=== PATIENT | male | born 1945 | race Caucasian/White ===

== ENCOUNTER 2017-04-04 16:43 | Outpatient (CLI) | payer OTHER ==
--- NOTE | 2017-04-06 08:48 | Ultrasound Report ---
RIGHT LEG ARTERIAL DUPLEX: 04/04/2017 CLINICAL INDICATION: Leg cramps, decreased dorsalis pulse. TECHNIQUE: Real-time sonographic vascular imaging was performed by the credit professional through the lower extremities utilizing both color-flow and Doppler spectral analysis. Multiple membership sales representative static images were saved for review. RIGHT SIDE SITE PSV WAVEFORM STEN ABLE BODIED SEAMAN 89 triphasic PSFA 92 triphasic MSFA 63 triphasic DSFA 115 triphasic PFA 53 triphasic POP 53 triphasic HUNTER 62 triphasic BENEFITS ANALYST 63 triphasic PER 58 triphasic DPA 38 triphasic TECHNIQUE: Real-time scanning was performed. RIGHT LEG: Waveforms are diffusely triphasic. There is no evidence of a focal hemodynamically significant stenosis. IMPRESSION: NO EVIDENCE OF A HEMODYNAMICALLY SIGNIFICANT ARTERIAL STENOSIS IN THE RIGHT LEG. MTDD
== END 2017-04-04 16:44 | disposition home or self-care (01) ==
LOC: DI 16:43
PROVIDERS: ATTEND Family Medicine
DX: R09.89 Other specified symptoms and signs involving the circulatory and respiratory systems (principal); R25.2 Cramp and spasm

== ENCOUNTER 2017-10-10 09:36 | Outpatient (CLI) | payer OTHER | END 2017-10-10 09:37 | disposition home or self-care (01) | LOC: SC 09:36 | PROVIDERS: ATTEND Nurse Practitioner Family | DX: G47.33 Obstructive sleep apnea (adult) (pediatric) (principal) | CPT/HCPCS: 99212; 99214 ==

== ENCOUNTER 2019-06-18 09:32 | Outpatient (CLI) | payer OTHER ==
[2019-06-18 12:04] LABS: BASOPHILS % (AUTO) 0.4 %; EOSINOPHILS # (AUTO) 0.1 10^3/uL (0.0-0.7); EOSINOPHILS % (AUTO) 1.1 %; HGB - HEMOGLOBIN 15.6 g/dL (14.0-18.0); LYMPHOCYTES # (AUTO) 1.5 10^3/uL (1.5-3.5); LYMPHOCYTES % (AUTO) 20.8 %; MEAN CORPUSCULAR HEMOGLOBIN 29.5 pg (27.0-31.0); MEAN CORPUSCULAR HGB CONC 31.7 g/dL (32.0-36.0); MEAN PLATELET VOLUME 10.3 fL (7.4-11.4); MONOCYTES # (AUTO) 0.6 10^3/uL (0.0-1.0); MONOCYTES % (AUTO) 8.9 %; NEUTROPHILS # (AUTO) 4.8 10^3/uL (1.5-6.6); NEUTROPHILS % (AUTO) 68.4 %; PLT - PLATELET COUNT 215 10^3/uL (130-450); RED BLOOD COUNT 5.29 10^6/uL (4.70-6.10); RED CELL DISTRIBUTION WIDTH 14.6 % (12.0-15.0)
[2019-06-18 12:35] LABS: ALBUMIN 3.9 g/dL (3.2-5.5); ALBUMIN/GLOBULIN RATIO 1.2 (1.0-2.2); ALKALINE PHOSPHATASE 86 IU/L (42-121); ALT ALANINE AMINOTRANSFERASE 27 IU/L (10-60); AST ASPARTATE AMINOTRANSFERASE 21 IU/L (10-42); BILIRUBIN,TOTAL 0.8 mg/dL (0.2-1.0); BUN - BLOOD UREA NITROGEN 23 mg/dL (6-20); CALCIUM 8.7 mg/dL (8.5-10.3); CARBON DIOXIDE - CO2 31 mmol/L (21-32); CHLORIDE 107 mmol/L (101-111); CHOL/HDL RATIO 3.9 (<5.0); CHOLESTEROL 145 mg/dL; CREATININE 1.1 mg/dL (0.6-1.2); GFR - MDRD 65 (>89); GLUCOSE 91 mg/dL (70-100); HDL CHOLESTEROL 37 mg/dL; LDL CHOLESTEROL,CALCULATED 69 mg/dL; LDL/HDL RATIO 1.9 (<3.6); SODIUM 143 mmol/L (135-145); TOTAL PROTEIN 7.1 g/dL (6.7-8.2); VLDL CHOLESTEROL 39 mg/dL
== END 2019-06-18 23:59 | disposition home or self-care (01) ==
LOC: LAB.WCP 09:32
PROVIDERS: ATTEND Family Medicine
DX: I48.91 Unspecified atrial fibrillation (principal); I10 Essential (primary) hypertension; E78.5 Hyperlipidemia, unspecified
CPT/HCPCS: 36415; 80053; 80061; 83721; 84443; 85025

== ENCOUNTER 2020-10-02 10:10 | Outpatient (CLI) | payer MEDICARE, OTHER ==
[2020-10-02 12:29] LABS: BASOPHILS % (AUTO) 0.5 %; EOSINOPHILS # (AUTO) 0.1 10^3/uL (0.0-0.7); EOSINOPHILS % (AUTO) 1.6 %; LYMPHOCYTES # (AUTO) 1.2 10^3/uL (1.5-3.5); LYMPHOCYTES % (AUTO) 21.2 %; MEAN CORPUSCULAR HEMOGLOBIN 29.6 pg (27.0-31.0); MEAN CORPUSCULAR HGB CONC 31.9 g/dL (32.0-36.0); MEAN PLATELET VOLUME 10.3 fL (7.4-11.4); MONOCYTES # (AUTO) 0.6 10^3/uL (0.0-1.0); MONOCYTES % (AUTO) 9.8 %; NEUTROPHILS # (AUTO) 3.8 10^3/uL (1.5-6.6); NEUTROPHILS % (AUTO) 66.7 %; PLT - PLATELET COUNT 209 10^3/uL (130-450); RED CELL DISTRIBUTION WIDTH 13.8 % (12.0-15.0); WHITE BLOOD COUNT 5.7 x10^3/uL (4.8-10.8)
[2020-10-02 12:58] LABS: ALBUMIN 3.9 g/dL (3.2-5.5); ALBUMIN/GLOBULIN RATIO 1.3 (1.0-2.2); ALKALINE PHOSPHATASE 92 IU/L (42-121); ALT ALANINE AMINOTRANSFERASE 32 IU/L (10-60); AST ASPARTATE AMINOTRANSFERASE 22 IU/L (10-42); BILIRUBIN,TOTAL 1.1 mg/dL (0.2-1.0); BUN - BLOOD UREA NITROGEN 18 mg/dL (6-20); CALCIUM 9.3 mg/dL (8.5-10.3); CARBON DIOXIDE - CO2 29 mmol/L (21-32); CHLORIDE 102 mmol/L (101-111); CHOL/HDL RATIO 4.2 (<5.0); CHOLESTEROL 139 mg/dL; CREATININE 1.1 mg/dL (0.6-1.2); GLUCOSE 99 mg/dL (70-100); HDL CHOLESTEROL 33 mg/dL; LDL CHOLESTEROL,CALCULATED 63 mg/dL; LDL/HDL RATIO 1.9 (<3.6); SODIUM 141 mmol/L (135-145); VLDL CHOLESTEROL 43 mg/dL
--- OUTSIDE RECORDS SUMMARY | 2020-10-07 01:55 | EXTERNAL MEDICAL SUMMARY RPT | Continuity of Care Document ---
:1945 Demographics Phone Unavailable Preferred Language Danish Marital Status Unknown Sikh Affiliation Unknown Race Unknown Ethnic Group Unknown Author Organization [facility] Address [address] [phone] Phone Care Team Providers Name Role Phone Chris Unavailable Unavailable Unavailable Unavailable Grant Unavailable Unavailable Eric Unavailable Unavailable Kyle Unavailable Unavailable Problems date description facility 2014-06-20 18:00 HYPERLIPIDEMIA NEC/NOS [facility] 2014-06-20 18:00 HYPERTENSION NOS [facility] [place] 2014-06-20 18:00 ATRIAL FIBRILLATION [facility] 2014-06-20 18:00 SYNCOPE AND COLLAPSE [facility] ical [place] 2014-06-20 18:00 LONG-TERM (CURRENT) USE OF [facility] 2014-06-20 18:00 OTH MED,LT,CURRENT USE [facility] 2014-08-26 10:19 UNSPECIFIED SLEEP APNEA [facility] 2014-08-26 10:19 SLEEP DISTURBANCES NEC [facility] 2014-08-26 10:19 RESPIRATORY ABNORM [facility] 2014-09-21 19:26 OBSTRUCTIVE SLEEP APNEA (ADULT) [facility] (PEDIATRIC) 2014-09-21 19:26 PERIODIC LIMB MOVEMENT DISORDER [facility] 2014-09-21 19:26 BODY MASS INDEX 27.0-27.9, ADULT [facility] 2014-10-28 20:13 OBSTRUCTIVE SLEEP APNEA (ADULT) [facility] (PEDIATRIC) 2014-10-28 20:13 PERIODIC LIMB MOVEMENT DISORDER [facility] 2014-10-28 20:13 BODY MASS INDEX 27.0-27.9, ADULT [facility] 2014-11-10 10:10 OBSTRUCTIVE SLEEP APNEA (ADULT) [facility] (PEDIATRIC) 2014-12-15 10:19 OBSTRUCTIVE SLEEP APNEA (ADULT) [facility] ([facility]) 2015-01-14 10:24 OBSTRUCTIVE SLEEP APNEA (ADULT) [facility] (PEDIATRIC) 2015-03-16 10:26 OBSTRUCTIVE SLEEP APNEA (ADULT) [facility] (PEDIATRIC) 2015-03-27 22:45 HYPERLIPIDEMIA NEC/NOS [facility] 2015-03-27 22:45 OBSTRUCTIVE SLEEP APNEA (ADULT) [facility] (PEDIATRIC) 2015-03-27 22:45 HYPERTENSION NOS [facility] 2015-03-27 22:45 ATRIAL FIBRILLATION [facility] 2015-03-27 22:45 TRANSIENT GLOBAL AMNESIA [facility] 2015-03-27 22:45 PAIN IN THORACIC SPINE [facility] 2015-03-27 22:45 OTHER BACK SYMPTOMS [facility] 2015-03-27 22:45 LONG-TERM (CURRENT) USE OF [facility] 2015-03-27 22:45 OTH MED,LT,CURRENT USE [facility] 2015-07-13 11:01 OBSTRUCTIVE SLEEP APNEA (ADULT) [facility] (PEDIATRIC) 2015-09-21 09:55 OBSTRUCTIVE SLEEP APNEA (ADULT) [facility] (PEDIATRIC) 2016-05-04 09:40 HYPERLIPIDEMIA, UNSPECIFIED [facility] 2016-05-04 09:40 ESSENTIAL (PRIMARY) HYPERTENSION [facility] 2016-05-04 09:40 UNSPECIFIED ATRIAL FIBRILLATION [facility] 2016-05-04 09:40 SICK SINUS SYNDROME [facility] 2016-05-17 11:02 OBSTRUCTIVE SLEEP APNEA (ADULT) [facility] (PEDIATRIC) 2017-04-04 16:43 OTH SYMPTOMS AND SIGNS INVOLVING [facility] THE CIRC AND RESP SYSTEMS 2017-04-04 16:43 CRAMP AND SPASM [facility] 2017-10-10 09:36 OBSTRUCTIVE SLEEP APNEA (ADULT) [facility] (PEDIATRIC) 2019-06-18 09:32 HYPERLIPIDEMIA, UNSPECIFIED [facility] 2019-06-18 09:32 ESSENTIAL (PRIMARY) HYPERTENSION [facility] 2019-06-18 09:32 UNSPECIFIED ATRIAL FIBRILLATION [facility] 2020-10-01 00:00:00 TSH WITH REFLEX TO FT4 [facility] 2020-10-01 00:00:00 Benign neoplasm of colon [facility] Primary Care [facility] 2020-10-01 00:00:00 Profound vision impairment, one [facility] Primary Care eye, impairment level not further [facility] specified 2020-10-01 00:00:00 Other primary cardiomyopathies [facility] 2020-10-01 00:00:00 Hypertrophy (benign) of prostate [facility] Primary Care with urinary obstruction and [facility] other lower urinary tract symptoms (LUTS) 2020-10-01 00:00:00 Encounters for other specified [facility] Primary Care administrative purpose [facility] 2020-10-01 00:00:00 COMPREHENSIVE METABOLIC PANEL [facility] Primary Care [facility] 2020-10-01 00:00:00 LIPIDS SCREEN [facility] 2020-10-01 00:00:00 CBC W/Diff/Plt [facility] 2020-10-01 00:00:00 Benign neoplasm of colon, [facility] unspecified [facility] 2020-10-01 00:00:00 Blindness, one eye, unspecified [facility] Primary Care eye [facility] 2020-10-01 00:00:00 Other cardiomyopathies [facility] 2020-10-01 00:00:00 Benign prostatic hyperplasia [facility] Primary Care with lower urinary tract symptoms [facility] 2020-10-01 00:00:[address] [facility] Primary Care [facility] 2020-10-01 00:00:00 Alcohol intake [facility] 2020-10-01 00:00:00 Health-related behavior [facility] 2020-10-01 00:00:00 Blindness of one eye [facility] 2020-10-01 00:00:00 Never smoker [facility] 2020-10-01 00:00:00 Lower urinary tract symptoms due [facility] to benign prostatic hypertrophy [place] [facility] 2020-10-01 00:00:[address] of colon [facility] [place] [facility] 2020-10-01 00:00:00 Little interest or pleasure in [facility] doing things? [facility] 2020-10-01 00:00:00 Feeling down, depressed, or [facility] Primary Care hopeless? [facility] 2020-10-01 00:00:00 Procedure carried out on subject [facility] Care [facility] 2020-10-01 00:00:00 Patient Health Questionnaire 2 [facility] item (PHQ2) total score [facility] 2020-10-01 00:00:00 Alcohol use [facility] 2020-10-01 00:00:00 Tobacco smoking status [facility] Primary Care [facility] 2020-10-01 00:00:00 Cardiomyopathy [facility] 2020-10-02 00:00 ISCHEMIC CARDIOMYOPATHY [facility] 2020-10-02 10:10 ISCHEMIC CARDIOMYOPATHY [facility] 2020-10-04 00:00:00 Sudden visual loss [facility] 2020-10-04 00:00:00 Sudden visual loss, unspecified [facility] Primary Care eye [facility] Allergies date description facility PENICILLINS [facility] LETTUCE [facility] POLLEN EXTRACTS [facility] No Known Drug Allergies [facility] NO ALLERGY INFORMATION AVAILABLE [facility] SULFA (SULFONAMIDE ANTIBIOTICS) [facility] NO KNOWN ALLERGIES [facility] [place] LABETALOL [facility] [place] AMOXICILLIN [facility] [place] HYDROCODONE-ACETAMINOPHEN [facility] NO KNOWN ENVIRONMENTAL ALLERGIES [facility] NO ALLERGY INFORMATION AVAILABLE [facility] SULFA (SULFONAMIDE ANTIBIOTICS) [facility] NO KNOWN ALLERGIES [facility] HYDROCORTISONE [facility] BACITRACIN [facility] AMLODIPINE [facility] VENLAFAXINE [facility] NEBIVOLOL HCL [facility] IODINE [facility] [id number] [facility] No Known Drug Allergies [facility] Procedures date description facility 2020-10-01 00:00:00 TSH WITH REFLEX TO FT4 [facility] [place] [facility] date description facility 2020-10-01 00:00:00 COMPREHENSIVE METABOLIC PANEL [facility] [place] [facility] date description facility 2020-10-01 00:00:00 LIPIDS SCREEN [facility] [place] [facility] date description facility 2020-10-01 00:00:00 CBC W/Diff/Plt [facility] [place] [facility] date description facility 2020-10-01 00:00:00 [facility] [place] [facility] Results Social History date description facility 2020-10-01 00:00:00 Never smoker [facility] [place] [facility] Social History date description facility 2020-10-01 00:00:00 Never smoker [facility] [place] [facility] date description facility [id number]
== END 2020-10-02 23:59 | disposition home or self-care (01) ==
LOC: LAB.WCP 10:10
PROVIDERS: ATTEND Internal Medicine
DX: I25.5 Ischemic cardiomyopathy (principal)
CPT/HCPCS: 36415; 80053; 80061; 83721; 84443; 85025

== ENCOUNTER 2020-10-05 09:38 | Observation (INO) | payer MEDICARE, OTHER ==
[2020-10-05 10:14] LABS: BASOPHILS % (AUTO) 0.3 %; EOSINOPHILS % (AUTO) 0.1 %; HGB - HEMOGLOBIN 17.3 g/dL (14.0-18.0); LYMPHOCYTES % (AUTO) 8.2 %; MEAN CORPUSCULAR HEMOGLOBIN 30.4 pg (27.0-31.0); MEAN CORPUSCULAR VOLUME 92.3 fL (80.0-94.0); MEAN PLATELET VOLUME 9.9 fL (7.4-11.4); MONOCYTES # (AUTO) 0.6 10^3/uL (0.0-1.0); MONOCYTES % (AUTO) 4.8 %; NEUTROPHILS # (AUTO) 10.3 10^3/uL (1.5-6.6); NEUTROPHILS % (AUTO) 86.3 %; PLT - PLATELET COUNT 233 10^3/uL (130-450); RED BLOOD COUNT 5.69 10^6/uL (4.70-6.10); RED CELL DISTRIBUTION WIDTH 13.7 % (12.0-15.0); WHITE BLOOD COUNT 11.9 x10^3/uL (4.8-10.8)
[2020-10-05 10:28] LABS: ALBUMIN 4.3 g/dL (3.2-5.5); ALBUMIN/GLOBULIN RATIO 1.2 (1.0-2.2); BILIRUBIN,TOTAL 1.2 mg/dL (0.2-1.0); CALCIUM 9.6 mg/dL (8.5-10.3); CREATININE 1.1 mg/dL (0.6-1.2)
--- NOTE | 2020-10-05 10:41 | ED Physician Documentation ---
PD HPI ABD PAIN - Stated complaint Stated Complaint: STOMACH PX - Chief complaint Chief Complaint: Abd Pain - History obtained from History obtained from: Patient - History of Present Illness Timing - onset: Last night Timing - duration: Hours Timing - details: Gradual onset, Still present Quality: Cramping, Fullness/distended, Pain Location: All over / everywhere Improved by: Vomiting, Other (belching and passing gas) Worsened by: Position, Palpation Associated symptoms: Nausea, Vomiting Similar symptoms before: Has not had sx before Recently seen: Not recently seen - Additional information Additional information: 74-year-old male developed abdominal pain and abdominal distention beginning last night after eating an entire frozen pizza. Patient feels he may have overindulged and he has abdominal pain distention of the abdomen feels like he is breathing air into his stomach he will have to belch or pass gas to have any relief. Review of Systems Constitutional: denies: Fever Eyes: denies: Decreased vision Ears: denies: Ear pain Nose: denies: Rhinorrhea / runny nose, Congestion Throat: denies: Sore throat Cardiac: denies: Chest pain / pressure, Palpitations Respiratory: denies: Dyspnea, Cough GI: reports: Abdominal Pain, Nausea, Vomiting : denies: Dysuria, Frequency Skin: denies: Rash Musculoskeletal: denies: Neck pain, Back pain, Extremity pain Neurologic: denies: Generalized weakness, Focal weakness, Numbness PD PAST MEDICAL HISTORY - Past Medical History Past Medical History: Yes Cardiovascular: Hypertension, High cholesterol, Coronary artery disease, Atrial fibrillation Respiratory: None Neuro: None Endocrine/Autoimmune: None GI: GERD : None HEENT: Other Psych: None Musculoskeletal: None Derm: None - Past Surgical History Past Surgical History: Yes General: Colonoscopy Ortho: Other Cardiovascular: Coronary stent, Pacemaker - Present Medications Home Medications: Ambulatory Orders Medication Instructions Recorded Confirmed Atorvastatin Calcium [Lipitor] 40 mg PO HS 06/20/14 10/05/20 Cholecalciferol (Vitamin D3) 2,000 units PO DAILY 06/20/14 10/05/20 [Vitamin D-3] Losartan [Cozaar] 100 mg PO DAILY 06/20/14 10/05/20 Multivitamin [Multivitamins] 1 each PO DAILY 06/20/14 03/27/15 Apixaban [Eliquis] 5 mg PO BID 10/05/20 Furosemide [Lasix] 40 mg PO DAILY 10/05/20 10/05/20 Metoprolol Succinate [Toprol Xl] 200 mg PO BID 10/05/20 10/05/20 Omeprazole Magnesium 20 mg PO DAILY 10/05/20 10/05/20 - Allergies Allergies/Adverse Reactions: Allergies Allergy/AdvReac Type Severity Reaction Status Date / Time No Known Drug Allergies Allergy Verified 10/05/20 09:49 - Social History Does the pt smoke?: No Smoking Status: Never smoker Does the pt drink ETOH?: No Does the pt have substance abuse?: No - Immunizations Immunizations are current?: Yes - POLST Patient has POLST: No PD ED PE NORMAL - Vitals Vital signs reviewed: Yes (Hypertensive) - General General: Alert and oriented X 3, No acute distress, Well developed/nourished - HEENT HEENT: Atraumatic, PERRL, EOMI - Neck Neck: Supple, no meningeal sign, No bony TTP - Cardiac Cardiac: RRR, No murmur - Respiratory Respiratory: No respiratory distress, Clear bilaterally - Abdomen Abdomen: Normal bowel sounds, Other (The abdomen is tense and distended with mild generalized tenderness there is no specific tenderness and no guarding.) - Back Back: No CVA TTP, No spinal TTP - Derm Derm: Normal color, Warm and dry, No rash - Extremities Extremities: No deformity, No edema - Neuro Neuro: Alert and oriented X 3, regulatory scientist 2-12 intact, No motor deficit, No sensory deficit, Normal speech Eye Opening: Spontaneous Motor: Obeys Commands Verbal: Oriented GCS Score: 15 - Psych Psych: Normal mood, Normal affect Results - Vitals Vitals: Vital Signs - 24 hr 10/05/20 10/05/20 10/05/20 09:44 10:19 11:13 Temperature 35.8 C L 36.6 C Heart Rate 83 76 67 Respiratory 17 18 14 Rate Blood Pressure 154/114 H 157/110 H 169/100 H O2 Saturation 100 100 97 10/05/20 12:19 Temperature 37.6 C Heart Rate 64 Respiratory 14 Rate Blood Pressure 141/94 H O2 Saturation 99 Oxygen O2 Source Room air - Labs Labs: Laboratory Tests 10/05/20 10/05/20 10:00 10:00 WBC 11.9 H RBC 5.69 Hgb 17.3 Hct 52.5 H MCV 92.3 MCH 30.4 MCHC 33.0 RDW 13.7 Plt Count 233 MPV 9.9 Neut # (Auto) 10.3 H Lymph # (Auto) 1.0 L [place] # (Auto) 0.6 Eos # (Auto) 0.0 Baso # (Auto) 0.0 Absolute Nucleated RBC 0.00 Nucleated RBC % 0.0 Sodium 141 Potassium 4.0 Chloride 102 Carbon Dioxide 28 Anion Gap 11.0 BUN 19 Creatinine 1.1 Estimated GFR (MDRD) 65 L Glucose 173 H Calcium 9.6 Total Bilirubin 1.2 H AST 28 ALT 34 Alkaline Phosphatase 94 Total Protein 8.0 Albumin 4.3 Globulin 3.7 Albumin/Globulin Ratio 1.2 Lipase 36 - Rads (name of study) CT ab/pel w Radiology: Prelim report reviewed (Impression: 1. Dilated fluid-filled loops of small bowel including the stomach most consistent with partial small bowel obstruction. Diverticulosis. ), EMP read indepedently, See rad report PD MEDICAL DECISION MAKING - ED course Complexity details: reviewed old records, reviewed results, re-evaluated patient, considered differential, d/w patient ED course: 74-year-old male feels like he is over eaten last night has the appearance of a small partial small bowel obstruction on CT scanning of the abdomen and pelvis. He continues to have vomiting he has contents continued in the stomach and I will asked our hospitalist to admit to observation. Departure - Departure Disposition: ED Place in Observation Clinical Impression: Partial small bowel obstruction Condition: Stable Discharge Date/Time: 10/05/20 13:53
[2020-10-05] MEDS ORDERED: IOVERSOL 320 100 ML VIAL IVP ONE ×2 (11:01→13:36)
[2020-10-05] MEDS ORDERED: SODIUM CHLORIDE 0.9% 1,000 ML IV STA (11:01)
[2020-10-05] MEDS ORDERED: ONDANSETRON 4 MG/2 ML VIAL IVP STA (11:01)
--- NOTE | 2020-10-05 11:54 | CT Report ---
PROCEDURE: Abdomen/Pelvis W INDICATIONS: abdominal distention CONTRAST: IV CONTRAST: Optiray 320 ml: 100 PO CONTRAST: *NO PO CONTRAST TECHNIQUE: After the administration of IV contrast, 5 mm thick sections acquired from the diaphragms to the symp hysis. 5 mm thick coronal and sagittal reformats were acquired. For radiation dose reduction, the f ollowing was used: automated exposure control, adjustment of mA and/or kV according to patient size. COMPARISON: None. FINDINGS: Image quality: Excellent. ABDOMEN: Lung bases: Lung bases are clear. Heart size is normal. Solid organs: Liver and spleen are normal in size and enhancement. Gallbladder is unremarkable Cecil iary system is non dilated. Pancreas enhances normally. No adrenal nodules. Kidneys demonstrate no rmal size and enhancement, without hydronephrosis. Nonobstructing calculi are present within the lef t kidney, the largest measuring 7 mm. Scattered areas of hypodensity are present within the left kidn ey suggestive of small cysts. Peritoneum and bowel: Stomach is prominently distended with fluid and debris. There are dilated, flui d-filled bowel loops within the upper and mid abdomen transition point appears to be within the mid a bdomen. Greatest dimension measures approximately 3.8 cm. Colon is minimally distended. Diverticula a re present. No free fluid or air. Nodes and vessels: No retroperitoneal or mesenteric adenopathy by size criteria. Aorta and inferior vena cava are normal in size. Miscellaneous: No ventral hernias. PELVIS: Genitourinary: Bladder wall thickness is normal. Miscellaneous: No inguinal hernias or adenopathy. Bones: No suspicious bony lesions. No vertebral body compression fractures. IMPRESSION: 1. Dilated fluid-filled loops of small bowel including the stomach most consistent with partial small bowel obstruction. 2. Diverticulosis. Reviewed by: Jennie George MD on 10/05/2020 11:52 AM PST Approved by: Jennie George MD on 10/05/2020 11:52 AM PST Station ID: [id number]
[2020-10-05] MEDS ORDERED: SODIUM CHLORIDE FLUSH 0.9% 10 ML SYRINGE IVP PRN (12:53)
[2020-10-05] MEDS ORDERED: ONDANSETRON 4 MG/2 ML VIAL IVP PRN (12:53)
[2020-10-05] MEDS ORDERED: ONDANSETRON ODT 4 MG TABLET TL PRN (12:53)
[2020-10-05] MEDS ORDERED: HYDROmorphone 0.5 MG/0.5 ML SYRINGE IVP PRN (12:53)
[2020-10-05] MEDS ORDERED: PROCHLORPERAZINE 10 MG/2 ML VIAL IVP PRN (12:53)
[2020-10-05] MEDS: LACTATED RINGERS 1,000 ML IV SCH ×2 (14:25→23:40)
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
--- NOTE | 2020-10-05 15:34 | XRAY Report ---
PROCEDURE: Chest for Line Placement INDICATIONS: NG Placement TECHNIQUE: One view of the chest was acquired. COMPARISON: 06/20/2014 FINDINGS: Surgical changes and devices: Left chest wall dual-lead cardiac pacer. No NG tube identified. Lungs and pleura: No pleural effusions or pneumothorax. Lungs are clear. Mediastinum: Mediastinal contours appear normal. Heart size is normal. Bones and chest wall: No suspicious bony lesions. Overlying soft tissues appear unremarkable. IMPRESSION: No NG tube identified. Reviewed by: Anabel Barrera MD, PhD on 10/05/2020 3:32 PM PST Approved by: Anabel Barrera MD, PhD on 10/05/2020 3:32 PM PST Station ID: [id number]
--- NOTE | 2020-10-05 17:05 | XRAY Report ---
PROCEDURE: Chest for Line Placement INDICATIONS: NG tube placement TECHNIQUE: One view of the chest was acquired. COMPARISON: The same day at 1501 hours. FINDINGS: Surgical changes and devices: Dual-lead left-sided pacemaker. There is a probable NG tube coursing do wn the midline of the mediastinum, though the tip is not seen in the lower mediastinum or projecting over the gastric bubble.. Lungs and pleura: Lung volumes are low. Bibasilar opacities, right greater than left. Gaseous distent ion of the stomach below the diaphragm. Mediastinum: Mediastinal contours appear normal. Heart size is obscured by elevated diaphragm conto urs.. Bones and chest wall: No suspicious bony lesions. Overlying soft tissues appear unremarkable. IMPRESSION: 1. Nasogastric tube tip is not convincingly seen given projection and technique. 2. Low lung volumes and probable right base atelectasis. Reviewed by: Debra Carlisle MD on 10/05/2020 5:04 PM PST Approved by: Debra Carlisle MD on 10/05/2020 5:04 PM PST Station ID: [id number]
[2020-10-05] MEDS: INSULIN REGULAR HUMAN 300 UNIT/3 ML VIAL SUBQ SCH ×2 (18:11→23:45)
[2020-10-05] MEDS: SODIUM CHLORIDE FLUSH 0.9% 10 ML SYRINGE IVP SCH ×2 (18:12→23:41)
[2020-10-05 18:59] LABS: BILIRUBIN,URINE NEGATIVE (NEGATIVE); GLUCOSE, URINE (UA) NEGATIVE (NEGATIVE); KETONES,URINE (UA) NEGATIVE (NEGATIVE); LEUKOCYTE ESTERASE, URINE NEGATIVE (NEGATIVE); NITRITE,URINE NEGATIVE (NEGATIVE); OCCULT BLOOD,URINE LARGE (NEGATIVE); PH,URINE 5.5 PH (5.0-7.5); PROTEIN,URINE TRACE mg/dL (NEGATIVE); UROBILINOGEN,URINE 0.2 (NORMAL) E.U./dL (NORMAL)
[2020-10-05 19:06] LABS: CLARITY,URINE HAZY (CLEAR)
[2020-10-05 19:13] LABS: BACTERIA,URINE None Seen /HPF (None Seen); SQUAMOUS EPITHELIAL CELL,UR NONE SEEN (<= Few)
[2020-10-05 19:57] LABS: C. PNEUMONIAE- RESP PCR PANEL NOT DETECTED
[2020-10-05] MEDS: ENOXAPARIN 100 MG/ML SYRINGE SUBQ SCH (20:56)
[2020-10-06] MEDS: INSULIN REGULAR HUMAN 300 UNIT/3 ML VIAL SUBQ SCH ×3 (05:39→19:51)
[2020-10-06] MEDS: LACTATED RINGERS 1,000 ML IV SCH (08:34)
[2020-10-06] MEDS: ENOXAPARIN 100 MG/ML SYRINGE SUBQ SCH ×2 (08:34→21:10)
[2020-10-06] MEDS: SODIUM CHLORIDE FLUSH 0.9% 10 ML SYRINGE IVP SCH ×2 (08:37→17:39)
--- NOTE | 2020-10-06 08:41 | PHARMACY PROGRESS NOTE ---
- Best Possible Medication History Admit Date and Time: 10/05/20 1253 Processed by: Pharmacy Medication History completed: Yes Patient Interview: Completed Secondary Source(s): Physician records, Pharmacy records, Insurance records (PATIENT INTERVIEWED BY PHARMACY. PATIENT ABLE TO CONFIRM HOME MEDICATIONS. ) As the person ultimately responsible for medication therapy, providers are able to order a medication from an existing home medication list in [facility] via the "Reconcile Routine" prior to Confirmation of that medication by medical support assistant. Such practice is discouraged except when the physician, in their clinical judgment, deems that a medical need exists for a medication without regard to previous use.
[2020-10-06] MEDS ORDERED: METOPROLOL 5 MG/5 ML VIAL IVP PRN (09:00)
[2020-10-06 09:16] LABS: BASOPHILS % (AUTO) 0.2 %; EOSINOPHILS # (AUTO) 0.1 10^3/uL (0.0-0.7); EOSINOPHILS % (AUTO) 0.7 %; LYMPHOCYTES # (AUTO) 1.3 10^3/uL (1.5-3.5); LYMPHOCYTES % (AUTO) 15.5 %; MEAN CORPUSCULAR HGB CONC 32.5 g/dL (32.0-36.0); MEAN CORPUSCULAR VOLUME 92.2 fL (80.0-94.0); MONOCYTES # (AUTO) 0.8 10^3/uL (0.0-1.0); MONOCYTES % (AUTO) 9.5 %; NEUTROPHILS # (AUTO) 6.1 10^3/uL (1.5-6.6); NEUTROPHILS % (AUTO) 73.9 %; PLT - PLATELET COUNT 179 10^3/uL (130-450); RED CELL DISTRIBUTION WIDTH 13.9 % (12.0-15.0); WHITE BLOOD COUNT 8.2 x10^3/uL (4.8-10.8)
[2020-10-06 09:29] LABS: CALCIUM 8.6 mg/dL (8.5-10.3); CREATININE 1.1 mg/dL (0.6-1.2)
--- NOTE | 2020-10-06 11:45 | XRAY Report ---
PROCEDURE: Abdomen 2 View X-Ray INDICATIONS: SBO, improved to see if resolved TECHNIQUE: 2 views of the abdomen were acquired. COMPARISON: CT abdomen pelvis 10/05/2020 FINDINGS: Surgical changes and devices: There is a partially visualized pacemaker lead projecting over the righ t ventricle. Bowel: There is a nonspecific bowel gas pattern with a paucity of intraluminal gas in the small alondra l. A mildly distended small bowel loop is demonstrated in the right lower abdomen measuring approxima tely 2.8 cm. There are a few scattered air-fluid levels. There is intraluminal gas demonstrated throu ghout the colon including the rectum. No pneumoperitoneum. Soft tissues: No suspicious abdominal calcifications. There are small bilateral pleural effusions wi thin the visualized lung bases. Bones: No suspicious bony abnormalities. IMPRESSION: 1. Nonspecific bowel gas pattern with a paucity of intraluminal gas in the small bowel. A few scatter ed air-fluid levels are demonstrated suggestive of a persistent partial obstruction or ileus. 2. Persistent small pleural effusions. Reviewed by: Suleman An MD on 10/06/2020 11:43 AM PST Approved by: Suleman An MD on 10/06/2020 11:43 AM PST Station ID: [id number]
[2020-10-06 12:15] LABS: HEMOGLOBIN A1c% 5.8 % (4.27-6.07)
[2020-10-06] MEDS: D5.45NS W/20 MEQ KCL 1,000 ML IV SCH (14:19)
--- NOTE | 2020-10-06 15:22 | PROVIDER PROGRESS NOTE ---
Assessment/Plan - Problem List (1) Partial small bowel obstruction Assessment/Plan: 10/08 Patient reported he passed gas and a small bowel movement. His abdominal pain is controlled. But repeat x-ray of abdomen still show patient still had partial bowel obstruction pattern. pt still has NG, pt denies nausea or vomiting any more. Plan: continue NG tube for decompression, low intermittent suction continue NPO, ice chips okay for comfort continue Monitor vitals, start antibiotics if febrile CEA for colon cancer is unremarkable called and put the consult for General Surgery encourage pt ambulation reduce opiates usage as possible. (2) Diverticulosis Patient denies any bloody emesis and his abdominal pain is well controlled (3) Nausea & vomiting resolved. We will continue intravenous IV fluids, continue NG tube (4) History of atrial fibrillation Well controlled rate with outpatient management. Regular rate and rhythm currently. Will resume his medications once able. Also is s/p pacemaker, reports he is paced at 60bpm, unsure if he is A or V paced. Plan: continue IV of metoprolol instead of home po metoprolol. (5) History of obstructive sleep apnea Conclusion/Plan: stable Continue to monitor oxygen saturations and heart rate with vitals checks and consult respiratory therapy if indicated. (6) History of hyperlipidemia Conclusion/Plan: stable Resume outpatient medication when able. (7) Hyperglycemia resolved. pt's sugar is controlled. A1C is 5.8. d/c glucose check, slide scale - Current Meds Current Meds: Current Medications Generic Name Dose Route Start Last Admin Trade Name Freq PRN Reason Stop Dose Admin Enoxaparin Sodium 100 mg 10/05/20 21:00 10/06/20 08:34 Enoxaparin 100 Mg/Ml Syringe SUBQ 100 mg BID ARIA Administration Potassium Chloride/Dextrose/Sod Cl 1,000 mls @ 100 mls/hr 10/06/20 15:00 10/06/20 14:19 D5.45ns W/20 Meq Kcl IV 100 mls/hr .Q10H ARIA Administration Insulin Human Regular 1 - 5 unit 10/05/20 18:00 10/06/20 12:12 Insulin Regular Human 300 Unit/3 Ml Vial SUBQ Not Given Q6HR ARIA Protocol Ondansetron HCl 4 mg 10/05/20 12:53 10/05/20 17:46 Ondansetron 4 Mg/2 Ml Vial IVP 4 mg Q6HR PRN Administration Nausea / Vomiting Sodium Chloride 10 ml 10/05/20 17:00 10/06/20 08:37 Sodium Chloride Flush 0.9% 10 Ml Syringe IVP Not Given 0100,0900,1700 ARIA - Lab Result Fish Bone Diagrams: 10/07/20 04:20 10/07/20 04:20 - Additional Planning My Orders: My Active Orders 10/06/20 General Surgery Consult [CONS] Routine 10/06/20 09:00 Metoprolol Inj [Lopressor Inj] 5 mg IVP Q6H PRN 10/06/20 15:00 D5.45ns W/20 Meq KCl 1,000 ml IV 100 mls/hr Subjective - Subjective Patient Reports: Feeling Better Objective Vital Signs: Vital Signs - 24 hr 10/05/20 10/05/20 10/05/20 15:41 20:10 23:56 Temperature 36.2 C L 37.1 C 37.5 C Heart Rate [ 62 79 80 Brachial] Respiratory 14 20 16 Rate Blood Pressure 156/88 H 147/66 H 141/55 H [Left Brachial artery] O2 Saturation 98 97 96 10/06/20 10/06/20 10/06/20 05:45 08:04 11:32 Temperature 36.6 C 36.3 C L 36.6 C Heart Rate [ 78 73 78 Brachial] Respiratory 18 18 18 Rate Blood Pressure 143/81 H 142/75 H 145/68 H [Left Brachial artery] O2 Saturation 96 94 98 Oxygen O2 Source Room air I&O (Last 24 Hrs): Intake and Output Totals x24h 10/04/20 10/05/20 10/06/20 23:59 23:59 23:59 Intake Total 1422 1584 Output Total 1450 250 Balance -28 1334 General: Alert, Oriented x3, Cooperative, No acute distress HEENT: Atraumatic Neck: Supple Lymphatic: no adenopathy Neuro: Alert, Non Focal, Oriented Times 3 Cardiovascular: Regular rate, Normal S1, Normal S2 Respiratory: Chest non-tender, No respiratory distress, Breath sounds nml Abdomen: Normal bowel sounds, Soft, No tenderness Extremities: Normal pulses Skin: No breakdown - Results Results: Laboratory Results WBC 8.2 x10^3/uL (4.8-10.8) 10/06/20 09:11 RBC 5.00 10^6/uL (4.70-6.10) 10/06/20 09:11 Hgb 15.0 g/dL (14.0-18.0) 10/06/20 09:11 Hct 46.1 % (42.0-52.0) 10/06/20 09:11 MCV 92.2 fL (80.0-94.0) 10/06/20 09:11 MCH 30.0 pg (27.0-31.0) 10/06/20 09:11 MCHC 32.5 g/dL (32.0-36.0) 10/06/20 09:11 RDW 13.9 % (12.0-15.0) 10/06/20 09:11 Plt Count 179 10^3/uL (130-450) 10/06/20 09:11 MPV 10.0 fL (7.4-11.4) 10/06/20 09:11 Neut # (Auto) 6.1 10^3/uL (1.5-6.6) 10/06/20 09:11 Lymph # (Auto) 1.3 10^3/uL (1.5-3.5) L 10/06/20 09:11 Faulkner # (Auto) 0.8 10^3/uL (0.0-1.0) 10/06/20 09:11 Eos # (Auto) 0.1 10^3/uL (0.0-0.7) 10/06/20 09:11 Baso # (Auto) 0.0 10^3/uL (0.0-0.1) 10/06/20 09:11 Absolute Nucleated RBC 0.00 x10^3/uL 10/06/20 09:11 Nucleated RBC % 0.0 /100WBC 10/06/20 09:11 Sodium 141 mmol/L (135-145) 10/06/20 09:11 Potassium 3.5 mmol/L (3.5-5.0) 10/06/20 09:11 Chloride 107 mmol/L (101-111) 10/06/20 09:11 Carbon Dioxide 27 mmol/L (21-32) 10/06/20 09:11 Anion Gap 7.0 (6-13) 10/06/20 09:11 BUN 18 mg/dL (6-20) 10/06/20 09:11 Creatinine 1.1 mg/dL (0.6-1.2) 10/06/20 09:11 Estimated GFR (MDRD) 65 (>89) L 10/06/20 09:11 Glucose 105 mg/dL (70-100) H 10/06/20 09:11 POC Whole Bld Glucose 97 mg/dL (70 - 100) 10/06/20 08:02 Estimat Average Glucose 120 mg/dL (70-100) H 10/06/20 09:11 Hemoglobin A1c % 5.8 % (4.27-6.07) 10/06/20 09:11 Calcium 8.6 mg/dL (8.5-10.3) 10/06/20 09:11 Total Bilirubin 1.2 mg/dL (0.2-1.0) H 10/05/20 10:00 AST 28 IU/L (10-42) 10/05/20 10:00 ALT 34 IU/L (10-60) 10/05/20 10:00 Alkaline Phosphatase 94 IU/L (42-121) 10/05/20 10:00 Total Protein 8.0 g/dL (6.7-8.2) 10/05/20 10:00 Albumin 4.3 g/dL (3.2-5.5) 10/05/20 10:00 Globulin 3.7 g/dL (2.1-4.2) 10/05/20 10:00 Albumin/Globulin Ratio 1.2 (1.0-2.2) 10/05/20 10:00 Amylase 36 U/L (28-100) 10/06/20 09:11 Lipase 36 U/L (22-51) 10/05/20 10:00 Carcinoembryonic Ag 0.7 ng/mL 10/06/20 09:11 Urine Color YELLOW 10/05/20 18:40 Urine Clarity HAZY (CLEAR) 10/05/20 18:40 Urine pH 5.5 PH (5.0-7.5) 10/05/20 18:40 Ur Specific Cactus 1.010 (1.002-1.030) 10/05/20 18:40 Urine Protein TRACE mg/dL (NEGATIVE) 10/05/20 18:40 Urine Glucose (UA) NEGATIVE mg/dL (NEGATIVE) 10/05/20 18:40 Urine Ketones NEGATIVE mg/dL (NEGATIVE) 10/05/20 18:40 Urine Occult Blood LARGE (NEGATIVE) H 10/05/20 18:40 Urine Nitrite NEGATIVE (NEGATIVE) 10/05/20 18:40 Urine Bilirubin NEGATIVE (NEGATIVE) 10/05/20 18:40 Urine Urobilinogen 0.2 (NORMAL) E.U./dL (NORMAL) 10/05/20 18:40 Ur Leukocyte Esterase NEGATIVE (NEGATIVE) 10/05/20 18:40 Urine RBC 11-25 /HPF (0-5) H 10/05/20 18:40 Urine WBC 0-3 /HPF (0-3) 10/05/20 18:40 Ur Squamous Epith Cells NONE SEEN (<= Few) 10/05/20 18:40 Urine Bacteria None Seen /HPF (None Seen) 10/05/20 18:40 Ur Microscopic Review INDICATED 10/05/20 18:40 Urine Culture Comments NOT INDICATED 10/05/20 18:40 Nasal Adenovirus (PCR) NOT DETECTED 10/05/20 18:40 Nasal B. parapertussis DNA (PCR) NOT DETECTED 10/05/20 18:40 Nasal Coronavir 229E PCR NOT DETECTED 10/05/20 18:40 Nasal Coronavir HKU1 PCR NOT DETECTED 10/05/20 18:40 Nasal Coronavir NL63 PCR NOT DETECTED 10/05/20 18:40 Nasal Coronavir OC43 PCR NOT DETECTED 10/05/20 18:40 Nasal Enterovir/Rhinovir PCR NOT DETECTED 10/05/20 18:40 Nasal Influenza B PCR NOT DETECTED 10/05/20 18:40 Nasal Influenza A PCR NOT DETECTED 10/05/20 18:40 Nasal Parainfluen 1 PCR NOT DETECTED 10/05/20 18:40 Nasal Parainfluen 2 PCR NOT DETECTED 10/05/20 18:40 Nasal Parainfluen 3 PCR NOT DETECTED 10/05/20 18:40 Nasal Parainfluen 4 PCR NOT DETECTED 10/05/20 18:40 Nasal RSV (PCR) NOT DETECTED 10/05/20 18:40 Nasal B.pertussis DNA PCR NOT DETECTED 10/05/20 18:40 Nasal C.pneumoniae (PCR) NOT DETECTED 10/05/20 18:40 Yusef Human Metapneumo PCR NOT DETECTED 10/05/20 18:40 Nasal M.pneumoniae (PCR) NOT DETECTED 10/05/20 18:40 Nasal SARS-CoV-2 (PCR) NOT DETECTED 10/05/20 18:40 Sepsis Event Note (H) - Evaluation Current Stage of Sepsis: Ruled out ABX Reporting Has patient been on IV antibiotics over the past 48 hours?: No Current Medications - Current Medications Current Medications: Active Medications Enoxaparin Sodium (Enoxaparin 100 Mg/Ml Syringe) 100 mg SUBQ BID [facility] Last Admin: 10/07/20 09:02 Dose: 100 mg Documented by: Hydromorphone HCl (Hydromorphone 0.5 Mg/0.5 Ml Syringe) 0.5 mg IVP Q2H PRN PRN Reason: Pain 8 to 10 Potassium Chloride/Dextrose/Sod Cl (D5.45ns W/20 Meq Kcl) 1,000 mls @ 100 mls/hr IV .Q10H [facility] Last Admin: 10/07/20 09:51 Dose: 100 mls/hr Documented by: Insulin Human Regular (Insulin Regular Human 300 Unit/3 Ml Vial) 1 - 5 unit SUBQ Q6HR [facility]; Protocol Last Admin: 10/07/20 05:28 Dose: Not Given Documented by: Metoprolol Tartrate (Metoprolol 5 Mg/5 Ml Vial) 5 mg IVP Q6H PRN PRN Reason: Tachycardia Ondansetron HCl (Ondansetron Odt 4 Mg Tablet) 4 mg TL Q6HR PRN PRN Reason: Nausea / Vomiting Ondansetron HCl (Ondansetron 4 Mg/2 Ml Vial) 4 mg IVP Q6HR PRN PRN Reason: Nausea / Vomiting Last Admin: 10/05/20 17:46 Dose: 4 mg Documented by: Prochlorperazine Edisylate (Prochlorperazine 10 Mg/2 Ml Vial) 10 mg IVP Q6HR PRN PRN Reason: Nausea / Vomiting Saccharomyces Boulardii (Saccharomyces Boulardii 250 Mg Capsule) 250 mg PO BIDWM [facility] Last Admin: 10/07/20 08:59 Dose: 250 mg Documented by: Sodium Chloride (Sodium Chloride Flush 0.9% 10 Ml Syringe) 10 ml IVP PRN PRN PRN Reason: NEEDED PER PROVIDER ORDERS Sodium Chloride (Sodium Chloride Flush 0.9% 10 Ml Syringe) 10 ml IVP 0100,0900,1700 [facility] Last Admin: 10/07/20 09:03 Dose: Not Given Documented by: Atorvastatin Calcium [Lipitor] 40 mg PO HS 06/20/14 Losartan [Cozaar] 100 mg PO DAILY 06/20/14 Multivitamin [Multivitamins] 1 each PO DAILY 06/20/14 Apixaban [Eliquis] 5 mg PO BID 10/05/20 Furosemide [Lasix] 40 mg PO DAILY 10/05/20 Metoprolol Succinate [Toprol Xl] 200 mg PO BID 10/05/20 Omeprazole Magnesium 20 mg PO DAILY 10/05/20 Cholecalciferol (Vitamin D3) [Vitamin D3] 25 mcg PO DAILY 10/06/20
[2020-10-06] MEDS ORDERED: DIATR MEGLU/DIATRIZOATE SODIUM 120 ML BOTTLE PO ONE ×2 (16:35→18:23)
[2020-10-06] MEDS: SACCHAROMYCES BOULARDII 250 MG CAPSULE PO SCH (17:38)
[2020-10-07] MEDS: INSULIN REGULAR HUMAN 300 UNIT/3 ML VIAL SUBQ SCH ×3 (01:11→12:04)
[2020-10-07] MEDS: D5.45NS W/20 MEQ KCL 1,000 ML IV SCH ×2 (01:11→09:51)
[2020-10-07] MEDS: SODIUM CHLORIDE FLUSH 0.9% 10 ML SYRINGE IVP SCH ×2 (01:12→09:03)
[2020-10-07 05:06] LABS: BASOPHILS % (AUTO) 0.4 %
[2020-10-07 05:12] LABS: EOSINOPHILS # (AUTO) 0.2 10^3/uL (0.0-0.7); EOSINOPHILS % (AUTO) 2.2 %; HGB - HEMOGLOBIN 14.3 g/dL (14.0-18.0); LYMPHOCYTES # (AUTO) 1.5 10^3/uL (1.5-3.5); LYMPHOCYTES % (AUTO) 21.5 %; MEAN CORPUSCULAR HEMOGLOBIN 30.5 pg (27.0-31.0); MEAN CORPUSCULAR HGB CONC 32.8 g/dL (32.0-36.0); MEAN PLATELET VOLUME 9.9 fL (7.4-11.4); MONOCYTES # (AUTO) 0.7 10^3/uL (0.0-1.0); MONOCYTES % (AUTO) 10.8 %; NEUTROPHILS # (AUTO) 4.4 10^3/uL (1.5-6.6); PLT - PLATELET COUNT 165 10^3/uL (130-450); RED BLOOD COUNT 4.69 10^6/uL (4.70-6.10); RED CELL DISTRIBUTION WIDTH 13.9 % (12.0-15.0); WHITE BLOOD COUNT 6.8 x10^3/uL (4.8-10.8)
[2020-10-07 05:22] LABS: CALCIUM 8.2 mg/dL (8.5-10.3)
--- NOTE | 2020-10-07 08:18 | XRAY Report ---
PROCEDURE: Abdomen 2 View X-Ray INDICATIONS: SBO? TECHNIQUE: 2 views of the abdomen were acquired. COMPARISON: 10/06/2020 FINDINGS: Surgical changes and devices: None. Bowel: No pneumoperitoneum. Oral contrast material is seen in ascending colon, transverse colon, anshu cending colon sigmoid colon and rectum. No abnormally distended bowel loops are seen. Soft tissues: No masses; visualized solid organ contours appear normal in size. No suspicious abdom inal calcifications. Bones: No suspicious bony abnormalities. IMPRESSION: No evidence of small bowel obstruction. No gross free air. Reviewed by: Christopher Gusman MD on 10/07/2020 8:17 AM PST Approved by: Christopher Gusman MD on 10/07/2020 8:17 AM PST Station ID: [id number]
[2020-10-07] MEDS: SACCHAROMYCES BOULARDII 250 MG CAPSULE PO SCH (08:59)
[2020-10-07] MEDS: ENOXAPARIN 100 MG/ML SYRINGE SUBQ SCH (09:02)
--- NOTE | 2020-10-07 12:20 | Discharge Plan ---
Discharge Plan Problem Reviewed?: Yes Disposition: Home, Self Care Condition: Stable Diet: Regular Activity Restrictions: Activity as Tolerated Shower Restrictions: No (fall precaution) Instruction Topics: Obstruction Sm Bowel Health Concerns: small bowel obstruction Plan of Treatment: After the treated in hospital, your bowel obstruction is resolved. x-rays show no bowel obstruction, he tolerated regular diet, you have no nausea or vomiting or abdominal pain, You passed the gas and had a bowel movement. Auditing Specialist was consult with you. Advised follow the instruction to prevention of obstruction. Try to eat smaller amounts of food with more often, chew your food very well, avoid high fibre foods, raw vegetables, followup with GI doctor as out pt as needed. Care Goals: stabilization and improvement/resolve of your medical conditions Assessment: discussed the care plan with you, you understood Additional Instructions or Follow Up instructions: you may followup with your PCP in one to two weeks. Should your symptoms return or worsen, you may present ER or call 911 for help. No Smoking: If you smoke, Please STOP! Call for help. Follow-up with: Ean Burns MD [Primary Care Provider] -
--- NOTE | 2020-10-07 12:28 | DISCHARGE SUMMARY ---
"Discharge Summary Admit Date: 10/05/20 Discharge Date: 10/07/20 Discharging Provider: Pollo Delong Primary Care Provider: Dr. Ean Diana Condition at Discharge: Stable Discharge Disposition: Home, Self Care Discharge Facility Name: home - DIAGNOSES Discharge Diagnoses with Status of Each Condition: (1) Partial small bowel obstruction Resolved, Patient tolerated regular diet, patient has no nausea or vomiting, patient has no abdominal pain, patient passing gas, patient have bowel movement. X-ray of the abdomen show obstruction is resolved. (2) Diverticulosis Patient has no any bloody emesis, resolved (3) Nausea & vomiting resolved. (4) History of atrial fibrillation stable, continue home meds (5) History of obstructive sleep apnea stable (6) History of hyperlipidemia stable - HPI History of Present Illness: refer from [facility]'s HPI on 10/05/20 74 year old obese male with past history of afib admitted this afternoon with abdominal pain/discomfort and distention. He reports he had pizza for dinner last night and then immediately started feeling uncomfortable and full. His abdomen is distended. He has been feeling as if he should defecate but is unable to produce more than a small watery stool. Prior to yesterday his stools were formed and soft. He reports 4 episodes of emesis that were reddish brown and an episode of dry heaving. He does not remember the last time he passed gas but has been belching a lot today. Has not had a change in diet and does not eat raw fish. Denies past abdominal surgeries. Denies fevers, cough, shortness of breath, though also reports chronic congestion and periodic coughing x1.5 years that he attributes to use of his CPAP (which he stopped using 1.5 years ago due to thinking it was giving him too much air and causing him to cough). He denies abdominal pain but does state he is uncomfortable, and nothing makes it worse or better. He has been unable to eat. He presented to the ER for further work up after calling his PCP and being instructed to come here for assessment. - CONSULTS | PROCEDURES Consultations: Dr. Tineo Procedures: No procedure - HOSPITAL COURSE Hospital Course: Patient was admitted for partial bowel obstruction with symptoms of nausea, vomiting and abdominal pain. Patient was ordered NG tube, bowel rest, encourage the patient ambulation, Intravenous IV fluids, Reduce opiates usage, Patient was given Gastrografin challenge, After treatment patient's small bowel obstruction was resolved. X-ray of the abdomen show no obstruction. Patient tolerated regula r diet, without nausea, vomiting, abdominal pain. Patient passed gas and had bowel movement. - ALLERGIES Allergies/Adverse Reactions: Allergies Allergy/AdvReac Type Severity Reaction Status Date / Time No Known Drug Allergies Allergy Verified 10/05/20 09:49 - MEDICATIONS Home Medications: Ambulatory Orders Medication Instructions Recorded Confirmed Atorvastatin Calcium [Lipitor] 40 mg PO HS 06/20/14 10/05/20 Losartan [Cozaar] 100 mg PO DAILY 06/20/14 10/05/20 Multivitamin [Multivitamins] 1 each PO DAILY 06/20/14 10/06/20 Apixaban [Eliquis] 5 mg PO BID 10/05/20 10/06/20 Furosemide [Lasix] 40 mg PO DAILY 10/05/20 10/05/20 Metoprolol Succinate [Toprol Xl] 200 mg PO BID 10/05/20 10/05/20 Omeprazole Magnesium 20 mg PO DAILY 10/05/20 10/05/20 Cholecalciferol (Vitamin D3) 25 mcg PO DAILY 10/06/20 10/06/20 [Vitamin D3] - PHYSICAL EXAM AT DISCHARGE General Appearance: positive: No acute distress, Alert. negative: Lethargic Eyes Bilateral: positive: Normal inspection, PERRL, No lid inflammation ENT: positive: ENT inspection nml, No signs of dehydration. negative: Purulent nasal drainage Neck: positive: Nml inspection, Trachea midline. negative: Thyromegaly, Tracheal deviation Respiratory: positive: Chest non-tender, No respiratory distress, Breath sounds nml. negative: Wheezes, Rales Cardiovascular: positive: Regular rate & rhythm, No murmur. negative: Tachycardia, Bradycardia, Systolic murmur, Diastolic murmur Peripheral Pulses: positive: 2+ Abdomen: positive: Non-tender, Nml bowel sounds, No distention. negative: Tenderness, Guarding, Rebound Back: positive: Nml inspection. negative: CVA tenderness (R), CVA tenderness (L) Skin: positive: Color nml, Warm, Dry. negative: Cyanosis, Diaphoresis, Pallor Extremities: positive: Non-tender, Full ROM, Nml appearance. negative: Calf tenderness Neurologic/Psychiatric: positive: Oriented x3, Motor nml, Sensation nml, Mood/affect nml. negative: Weakness, Sensory loss, Facial droop, Slurred/abnml speech, Depressed mood/affect - LABS Result Diagrams: 10/07/20 04:20 10/07/20 04:20 - SEPSIS Current Stage of Sepsis: Ruled out - FOLLOW UP Follow Up: After the treated in hospital, your bowel obstruction is resolved. x-rays show no bowel obstruction, he tolerated regular diet, you have no nausea or vomiting or abdominal pain, You passed the gas and had a bowel movement. Laborer Operator was consult with you. Advised follow the instruction to prevention of obstruction. Try to eat smaller amounts of food with more often, chew your food very well, avoid high fibre foods, raw vegetables, followup with GI doctor as out pt as needed. you may followup with your PCP in one to two weeks. Should your symptoms return or worsen, you may present ER or call 911 for help. - TIME SPENT Time Spent in Discharge (Minutes): 30"
[2020-10-07 12:38] VITALS: BP 135/82
== END 2020-10-07 13:30 | disposition home or self-care (01) ==
LOC: ED 09:38 → MS2 12:53
PROVIDERS: ADMIT Specialist; ATTEND Nurse Practitioner Gerontology
DX: K56.600 Partial intestinal obstruction, unspecified as to cause (principal); K57.30 Diverticulosis of large intestine without perforation or abscess without bleeding; I48.91 Unspecified atrial fibrillation; G47.33 Obstructive sleep apnea (adult) (pediatric); E78.5 Hyperlipidemia, unspecified; I10 Essential (primary) hypertension; Z95.0 Presence of cardiac pacemaker; Z79.01 Long term (current) use of anticoagulants; R73.9 Hyperglycemia, unspecified; I25.10 Atherosclerotic heart disease of native coronary artery without angina pectoris
CPT/HCPCS: 36415; 71045; 74019; 74177; 80048; 80053; 81001; 82150; 82378; 83036; 83690; 85025; 87631; 96365; 96366; 96372; 96375; 96376; 99284; 99285; A9270; G0378; J1650; J7120; Q9967; 0202U; 81003; 87086

== ENCOUNTER 2021-04-22 08:00 | Outpatient (CLI) | payer MEDICARE ==
[2021-04-22 18:12] LABS: CREATININE 1.1 mg/dL (0.6-1.2)
[2021-04-22 18:39] LABS: CALCIUM 9.2 mg/dL (8.5-10.3)
== END 2021-04-22 23:59 | disposition home or self-care (01) ==
LOC: LAB.WCP 08:00
PROVIDERS: ATTEND Internal Medicine
DX: I42.8 Other cardiomyopathies (principal)
CPT/HCPCS: 36415; 80048

== ENCOUNTER 2021-08-16 10:32 | Outpatient (CLI) | payer MEDICARE ==
[2021-08-16 18:38] LABS: BASOPHILS % (AUTO) 0.5 %; EOSINOPHILS # (AUTO) 0.1 10^3/uL (0.0-0.7); EOSINOPHILS % (AUTO) 1.4 %; HCT - HEMATOCRIT 50.6 % (42.0-52.0); HGB - HEMOGLOBIN 16.1 g/dL (14.0-18.0); LYMPHOCYTES # (AUTO) 1.2 10^3/uL (1.5-3.5); LYMPHOCYTES % (AUTO) 17.8 %; MEAN CORPUSCULAR HEMOGLOBIN 29.9 pg (27.0-31.0); MEAN CORPUSCULAR HGB CONC 31.8 g/dL (32.0-36.0); MEAN CORPUSCULAR VOLUME 93.9 fL (80.0-94.0); MEAN PLATELET VOLUME 10.5 fL (7.4-11.4); MONOCYTES # (AUTO) 0.7 10^3/uL (0.0-1.0); MONOCYTES % (AUTO) 10.5 %; NEUTROPHILS # (AUTO) 4.5 10^3/uL (1.5-6.6); NEUTROPHILS % (AUTO) 69.6 %; PLT - PLATELET COUNT 198 10^3/uL (130-450); RED BLOOD COUNT 5.39 10^6/uL (4.70-6.10); RED CELL DISTRIBUTION WIDTH 14.1 % (12.0-15.0); WHITE BLOOD COUNT 6.5 x10^3/uL (4.8-10.8)
[2021-08-16 18:49] LABS: ALBUMIN 4.1 g/dL (3.2-5.5); ALBUMIN/GLOBULIN RATIO 1.4 (1.0-2.2); ALKALINE PHOSPHATASE 78 IU/L (42-121); ALT ALANINE AMINOTRANSFERASE 29 IU/L (10-60); AST ASPARTATE AMINOTRANSFERASE 24 IU/L (10-42); BILIRUBIN,TOTAL 1.2 mg/dL (0.2-1.0); BUN - BLOOD UREA NITROGEN 22 mg/dL (6-20); CARBON DIOXIDE - CO2 30 mmol/L (21-32); CHLORIDE 101 mmol/L (101-111); CHOL/HDL RATIO 3.8 (<5.0); CHOLESTEROL 130 mg/dL; CREATININE 1.2 mg/dL (0.6-1.2); GFR - MDRD 59 (>89); GLUCOSE 95 mg/dL (70-100); HDL CHOLESTEROL 34 mg/dL; LDL CHOLESTEROL,CALCULATED 71 mg/dL; LDL/HDL RATIO 2.1 (<3.6); POTASSIUM 4.3 mmol/L (3.5-5.0); SODIUM 140 mmol/L (135-145); TRIGLYCERIDES 125 mg/dL; VLDL CHOLESTEROL 25 mg/dL
== END 2021-08-16 23:59 | disposition home or self-care (01) ==
LOC: LAB.WCP 10:32
PROVIDERS: ATTEND Internal Medicine
DX: I48.0 Paroxysmal atrial fibrillation (principal); E78.5 Hyperlipidemia, unspecified
CPT/HCPCS: 36415; 80053; 80061; 83721; 85025

== ENCOUNTER 2022-12-08 09:16 | Outpatient (CLI) | payer MEDICARE ==
[2022-12-08 11:28] LABS: BASOPHILS % (AUTO) 0.5 %; EOSINOPHILS # (AUTO) 0.1 10^3/uL (0.0-0.7); HCT - HEMATOCRIT 55.9 % (42.0-52.0); HGB - HEMOGLOBIN 17.7 g/dL (14.0-18.0); LYMPHOCYTES # (AUTO) 1.3 10^3/uL (1.5-3.5); LYMPHOCYTES % (AUTO) 22.5 %; MEAN CORPUSCULAR HEMOGLOBIN 29.5 pg (27.0-31.0); MEAN CORPUSCULAR HGB CONC 31.7 g/dL (32.0-36.0); MEAN CORPUSCULAR VOLUME 93.2 fL (80.0-94.0); MEAN PLATELET VOLUME 10.3 fL (7.4-11.4); MONOCYTES # (AUTO) 0.6 10^3/uL (0.0-1.0); MONOCYTES % (AUTO) 9.8 %; NEUTROPHILS # (AUTO) 3.8 10^3/uL (1.5-6.6); PLT - PLATELET COUNT 185 10^3/uL (130-450); RED CELL DISTRIBUTION WIDTH 14.3 % (12.0-15.0); WHITE BLOOD COUNT 5.9 x10^3/uL (4.8-10.8)
[2022-12-08 11:43] LABS: ALBUMIN 3.7 g/dL (3.2-5.5); ALBUMIN/GLOBULIN RATIO 1.1 (1.0-2.2); ALKALINE PHOSPHATASE 77 IU/L (42-121); ALT ALANINE AMINOTRANSFERASE 24 IU/L (10-60); AST ASPARTATE AMINOTRANSFERASE 24 IU/L (10-42); BILIRUBIN,TOTAL 1.1 mg/dL (0.2-1.0); BUN - BLOOD UREA NITROGEN 24 mg/dL (6-20); CARBON DIOXIDE - CO2 29 mmol/L (21-32); CHLORIDE 105 mmol/L (101-111); CHOL/HDL RATIO 3.8 (<5.0); CHOLESTEROL 130 mg/dL; CREATININE 1.2 mg/dL (0.6-1.2); GFR - MDRD 58 (>89); GLUCOSE 105 mg/dL (70-100); HDL CHOLESTEROL 34 mg/dL; LDL CHOLESTEROL,CALCULATED 70 mg/dL; LDL/HDL RATIO 2.1 (<3.6); SODIUM 141 mmol/L (135-145); TRIGLYCERIDES 128 mg/dL; VLDL CHOLESTEROL 26 mg/dL
== END 2022-12-08 09:17 | disposition home or self-care (01) ==
LOC: LAB.N 09:16
PROVIDERS: ATTEND Internal Medicine
DX: I50.42 Chronic combined systolic (congestive) and diastolic (congestive) heart failure (principal)
CPT/HCPCS: 36415; 80053; 80061; 83721; 83880; 85025

== ENCOUNTER 2023-04-24 10:16 | Emergency (ER) | payer MEDICARE ==
[2023-04-24 11:21] VITALS: BP 104/64
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
== END 2023-04-24 13:05 | disposition home or self-care (01) ==
LOC: ED 10:16
DX: S61.011D Laceration without foreign body of right thumb without damage to nail, subsequent encounter (principal); X58.XXXD Exposure to other specified factors, subsequent encounter
CPT/HCPCS: 99281; 99282

== ENCOUNTER 2023-09-28 12:29 | Outpatient (CLI) | payer MEDICARE ==
[2023-09-28 17:43] LABS: BASOPHILS % (AUTO) 0.5 %; EOSINOPHILS # (AUTO) 0.1 10^3/uL (0.0-0.7); EOSINOPHILS % (AUTO) 0.8 %; HCT - HEMATOCRIT 58.6 % (42.0-52.0); HGB - HEMOGLOBIN 18.3 g/dL (14.0-18.0); LYMPHOCYTES % (AUTO) 13.1 %; MEAN CORPUSCULAR HEMOGLOBIN 29.6 pg (27.0-31.0); MEAN CORPUSCULAR HGB CONC 31.2 g/dL (32.0-36.0); MEAN CORPUSCULAR VOLUME 94.8 fL (80.0-94.0); MEAN PLATELET VOLUME 11.1 fL (7.4-11.4); MONOCYTES # (AUTO) 0.6 10^3/uL (0.0-1.0); MONOCYTES % (AUTO) 8.6 %; NEUTROPHILS # (AUTO) 5.7 10^3/uL (1.5-6.6); NEUTROPHILS % (AUTO) 76.7 %; PLT - PLATELET COUNT 203 10^3/uL (130-450); RED BLOOD COUNT 6.18 10^6/uL (4.70-6.10); RED CELL DISTRIBUTION WIDTH 14.2 % (12.0-15.0); WHITE BLOOD COUNT 7.4 x10^3/uL (4.8-10.8)
[2023-09-28 18:05] LABS: CALCIUM 9.6 mg/dL (8.5-10.3); CREATININE 1.3 mg/dL (0.6-1.3); POTASSIUM 3.9 mmol/L (3.5-4.5)
== END 2023-09-28 12:30 | disposition home or self-care (01) ==
LOC: LAB.N 12:29
PROVIDERS: ATTEND Physician Assistant Medical
DX: I42.8 Other cardiomyopathies (principal)
CPT/HCPCS: 36415; 80048; 85025

== ENCOUNTER 2024-03-11 08:43 | Outpatient (CLI) | payer MEDICARE ==
[2024-03-11 09:02] LABS: BASOPHILS % (AUTO) 0.4 %; EOSINOPHILS # (AUTO) 0.1 10^3/uL (0.0-0.7); EOSINOPHILS % (AUTO) 1.5 %; HCT - HEMATOCRIT 55.6 % (42.0-52.0); HGB - HEMOGLOBIN 17.7 g/dL (14.0-18.0); LYMPHOCYTES # (AUTO) 1.3 10^3/uL (1.5-3.5); LYMPHOCYTES % (AUTO) 18.3 %; MEAN CORPUSCULAR HEMOGLOBIN 30.2 pg (27.0-31.0); MEAN CORPUSCULAR HGB CONC 31.8 g/dL (32.0-36.0); MEAN CORPUSCULAR VOLUME 94.9 fL (80.0-94.0); MEAN PLATELET VOLUME 9.7 fL (7.4-11.4); MONOCYTES # (AUTO) 0.7 10^3/uL (0.0-1.0); MONOCYTES % (AUTO) 9.1 %; NEUTROPHILS # (AUTO) 5.1 10^3/uL (1.5-6.6); NEUTROPHILS % (AUTO) 70.3 %; PLT - PLATELET COUNT 183 10^3/uL (130-450); RED BLOOD COUNT 5.86 10^6/uL (4.70-6.10); RED CELL DISTRIBUTION WIDTH 14.2 % (12.0-15.0); WHITE BLOOD COUNT 7.3 x10^3/uL (4.8-10.8)
[2024-03-11 09:17] LABS: ALBUMIN/GLOBULIN RATIO 1.5 (1.0-2.2); ALKALINE PHOSPHATASE 73 IU/L (42-121); ALT ALANINE AMINOTRANSFERASE 39 IU/L (10-60); AST ASPARTATE AMINOTRANSFERASE 27 IU/L (10-42); BILIRUBIN,TOTAL 0.9 mg/dL (0.2-1.0); BUN - BLOOD UREA NITROGEN 26 mg/dL (6-20); CALCIUM 9.2 mg/dL (8.5-10.3); CARBON DIOXIDE - CO2 30 mmol/L (21-32); CHLORIDE 107 mmol/L (101-111); CHOL/HDL RATIO 4.1 (<5.0); CHOLESTEROL 144 mg/dL; CREATININE 1.2 mg/dL (0.6-1.3); GFR - MDRD 58 (>89); GLUCOSE 98 mg/dL (74-104); HDL CHOLESTEROL 35 mg/dL; LDL CHOLESTEROL,CALCULATED 74 mg/dL; LDL/HDL RATIO 2.1 (<3.6); POTASSIUM 4.3 mmol/L (3.5-4.5); SODIUM 142 mmol/L (135-145); TOTAL PROTEIN 6.6 g/dL (6.4-8.9); TRIGLYCERIDES 173 mg/dL (48-352); VLDL CHOLESTEROL 35 mg/dL
[2024-03-11 09:32] LABS: THYROID STIMULATING HORMONE 1.54 uIU/mL (0.34-5.60)
== END 2024-03-11 08:44 | disposition home or self-care (01) ==
LOC: LAB 08:43
PROVIDERS: ATTEND Internal Medicine
DX: I10 Essential (primary) hypertension (principal); E78.5 Hyperlipidemia, unspecified; I48.91 Unspecified atrial fibrillation
CPT/HCPCS: 36415; 80053; 80061; 83721; 84443; 85025